=== PATIENT | male | born 1955 | race Caucasian/White ===

== ENCOUNTER 2018-06-11 17:58 | Emergency (ER) | payer SELFPAY ==
[2018-06-11] MEDS ORDERED: Tetan/Diph/Pertus SYR(Tdap)* 0.5 ML SYR(BOOSTRIX) use SYR IM ONE (18:05)
[2018-06-11] MEDS ORDERED: Lidocaine 2% PF * 5 ML VIAL INJ ONE (18:05)
--- NOTE | 2018-06-11 18:06 | UC ---
Laceration HPI - HPI Summary HPI Summary: 62 yo male presents with laceration to LEFT 4th digit. 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 He applied pressure and came to . Unsure date of last tetanus. - History Of Current Complaint Stated Complaint: FINGER LACERATION Time Seen by Provider: 06/11/18 18:05 Hx Obtained From: Patient Laceration Location: Finger Mechanism Of Injury: Sharp Trauma Severity: Moderate Pain Intensity: 4 Pain Scale Used: 0-10 Numeric - Allergies/Home Medications Allergies/Adverse Reactions: Allergies Allergy/AdvReac Type Severity Reaction Status Date / Time No Known Allergies Allergy Verified 06/11/18 18:08 Home Medications: Home Medications NK [No Home Medications Reported] 06/11/18 [History Confirmed 06/11/18] PMH/Surg Hx/FS Hx/Imm Hx - Additional Past Medical History Additional PMH: None Previously Healthy: Yes - Surgical History Surgical History: None - Family History Known Family History: Positive: Hypertension - Social History Occupation: Employed Full-time Lives: With Family Alcohol Use: Occasionally Smoking Status (MU): Never Smoked Tobacco Review of Systems Constitutional: Negative Skin: Other - Laceration left 4th digit Respiratory: Negative Cardiovascular: Negative Neurovascular: Negative Musculoskeletal: Negative Neurological: Negative Psychological: Negative All Other Systems Reviewed And Are Negative: Yes Physical Exam - Summary Physical Exam Summary: GENERAL: NAD. WDWN. No pain distress. SKIN: Left 4th digit: There is a 4.5cm length and 1.0cm width linear laceration from the distal digit to the PIP on the radial aspect. Copious subcutaneous tissue exposed. No tendon involvement appreciated. Nail intact and without injury. Mild active bleeding without pulsation CHEST: No accessory muscle use. Breathing comfortably and in no distress. CV: Pulses intact. Cap refill <2seconds at left 4th digit MSK: FROM and symmetric strength at DIP, PIP, and MCP of left 4th digit. NEURO: Alert. Sensation to distal left 4th digit intact PSYCH: Age appropriate behavior. Triage Information Reviewed: Yes Vital Signs: Vital Signs: Temp Pulse Resp BP Pulse Ox 97.5 F 68 18 143/87 97 06/11/18 18:08 06/11/18 18:08 06/11/18 18:08 06/11/18 18:08 06/11/18 18:08 Vital Signs Reviewed: Yes Laceration Repair - Laceration Repair 1 Description: Linear Laceration Size After Repair: Length (cm) - 4.5 Modified For Repair: No Anesthesia Used: 2.0% Lido Irrigation With Pressure Irrigation Device: Yes Closure Material: Sutures Closure Method: Single Layer Suture Of: Skin Suture Type: Prolene Laceration Course/Dx - Course/Dx Course Of Treatment: A time out was performed, witnessed, and signed. The area was irrigated with 750mL sterile saline. 4mL of 2% lidocaine without epi was administered and good anesthetization was achieved. In the usual sterile fashion , THREE 5-0 prolene interrupted sutures were placed and FIVE 5-0 prolene horizontal mattress sutures were placed. Significant approximation was able to be achieved, however the laceration remained 1-1.5mm open centrally in a linear fashion and was unable to be further approximated due to skin tension. The wound was bandaged with xeroform, telfa, and tubegauze. Pt tolerated procedure well. tdap updated today. I advised pt to return in 4-5 days for a wound check, however he tells me that he does not have insurance, but his daughter is a DO in primary care and will have her look at the wound. Also made him aware of [place]. - Differential Dx - Laceration/Wound Provider Diagnoses: Laceration left 4th digit Discharge - Sign-Out/Discharge Documenting (check all that apply): Patient Departure All imaging exams completed and their final reports reviewed: No Studies - Discharge Plan Condition: Stable Disposition: HOME Patient Education Materials: Care For Your Stitches (DC), Laceration (ED) Referrals: No Primary Care Phys,NOPCP [Primary Care Provider] - Additional Instructions: If you develop a fever, shortness of breath, chest pain, new or worsening symptoms - please call your PCP or go to the ED. Your blood pressure was high at todays visit. Please see your primary provider within 4 weeks for recheck and re-evaluation. 1) Please keep the area bandaged, clean, dry, and intact for the next 48hours. 2) If you develop a fever, colored or thick discharge, increased pain or swelling - please call your PCP or go to the ED. 3) Please return/attend the free clinic in 10 days to have your EIGHT sutures removed. - Billing Disposition and Condition Condition: STABLE Disposition: Home - Attestation Statements Provider Attestation: Per institutional requirements, I have reviewed the chart, however, I was not consulted specifically or made aware of this patient by the midlevel provider. I did not personally evaluate, interact with , or disposition this patient
[2018-06-11 18:12] VITALS: BP 143/87
== END 2018-06-11 19:55 | disposition home or self-care (01) ==
LOC: UCEAST 17:58
DX: S61.215A Laceration without foreign body of left ring finger without damage to nail, initial encounter (principal); W26.8XXA Contact with other sharp object(s), not elsewhere classified, initial encounter; Y93.89 Activity, other specified; Y92.9 Unspecified place or not applicable; Z23 Encounter for immunization
CPT/HCPCS: 12001; 12002; 90715; 99201; G0463

== ENCOUNTER 2022-02-20 03:29 | Observation (INO) ==
[2022-02-20 04:12] LABS: ABS Basophils 0.1 10^3/ul (0-0.2); ABS Eosinophils 0.1 10^3/ul (0-0.6); ABS Lymphocytes 0.9 10^3/ul (1.0-4.8); ABS Monocytes 0.8 10^3/ul (0-0.8); Eosinophil % 1.8 %; Hematocrit 40 % (42-52); Hemoglobin 13.5 g/dL (14.0-18.0); Lymphocyte % 18.2 %; Mean Corpuscular HGB Conc 34 g/dL (31-36); Mean Corpuscular Hemoglobin 32 pg (27-31); Mean Corpuscular Volume 94 fL (80-94); Mean Platelet Volume 7.3 fL (7.4-10.4); Platelet Count 285 10^3/uL (150-450); Red Blood Count 4.21 10^6 /uL (4.18-5.48); Red Cell Distribution Width 13 % (10-15); White Blood Count 4.9 10^3/uL (3.5-10.8)
[2022-02-20 04:19] LABS: INR 0.95 (0.86-1.15)
[2022-02-20 04:32] LABS: Albumin 3.8 g/dL (3.2-5.2); Albumin/Globulin Ratio 1.4 (1-3); Calcium 9.2 mg/dL (8.6-10.3); Globulin 2.7 g/dL (2-4); HDL Cholesterol 64.2 mg/dL; Potassium 4.3 mmol/L (3.5-5.0); Total Bilirubin 0.5 mg/dL (0.2-1.0); Total Protein 6.5 g/dL (6.4-8.9); eGFR CKD-EPI 70.3 (>60)
[2022-02-20 05:52] LABS: High Sensitivity Troponin 1 Hr 5 pg/mL (<20)
[2022-02-20] MEDS: Heparin 5000 UNITS/ML 1 mL VIAL SUBCUT SCH ×3 (06:20→21:05)
[2022-02-20] MEDS: Fluticasone NASAL SPRAY 50MCG 16 gm SPRAY BTL BOTH NARES SCH (22:27)
[2022-02-21] MEDS: Heparin 5000 UNITS/ML 1 mL VIAL SUBCUT SCH (05:22)
[2022-02-21] MEDS: Fluticasone NASAL SPRAY 50MCG 16 gm SPRAY BTL BOTH NARES SCH (08:22)
[2022-02-21 11:29] VITALS: BP 116/70
== END 2022-02-21 11:27 | disposition home or self-care (01) ==
LOC: ED 03:29 → EDHOLD 05:25 → INTOOBSV 05:25 → MEDTELE 10:55
PROVIDERS: ADMIT Internal Medicine; ATTEND Internal Medicine